=== PATIENT | female | born 1985 | race Two or more races ===

== ENCOUNTER 2017-02-15 21:11 | Emergency (ER) | payer BC, OTHER ==
[~2017-02-15] VITALS: Ht 160 cm; Wt 85.5 kg
[2017-02-15] MEDS ORDERED: FEXO1TAB29 PO (21:35)
[2017-02-15] MEDS ORDERED: DIPH25CA61 PO (21:35)
[2017-02-15] MEDS ORDERED: ALBUTEROL/IPRATROPIUM 2.5MG/0.5MG, 3 ML NPPB ONE (22:00)
[2017-02-15] MEDS ORDERED: ALBUTEROL/IPRATROPIUM 2.5MG/0.5MG, 3 ML ONE (22:03)
[2017-02-15] MEDS ORDERED: AZITHROMYCIN 500 MG TABLET PO ONE (22:30)
[2017-02-15] MEDS ORDERED: CEFTRIAXONE 1,000 MG IM ONE (22:30)
[2017-02-16 00:31] VITALS: BP 124/71
== END 2017-02-16 00:33 | disposition home or self-care (01) ==
LOC: ED 23:09
DX: J15.9 Unspecified bacterial pneumonia (principal); J98.01 Acute bronchospasm
CPT/HCPCS: 71020; 93005; 94640; 96372; 99284; J0696; J7512; J7620

== ENCOUNTER 2019-05-07 21:23 | Emergency (ER) | payer BC ==
[~2019-05-07] VITALS: Ht 160 cm; Wt 84.2 kg
[~2019-05-07 21:23] MED LIST: DIPH25CA61 PO; FEXO1TAB29 PO
[2019-05-07 21:25] VITALS: BP 142/100
--- NOTE | 2019-05-07 21:46 | NUR ---
Pt resting on gurney, c/o waking this am w/ dry throat, nonproductive cough, states "wheezes". VS wdl, respirations even and unlabored, speaks in full complete sentences, denies SOB on ambulation, does not take home medications. Xray at bedside.
[2019-05-07] MEDS ORDERED: ALBUTEROL/IPRATROPIUM 2.5MG/0.5MG, 3 ML NPPB ONE (22:00)
[2019-05-07] MEDS ORDERED: ALBUTEROL/IPRATROPIUM 2.5MG/0.5MG, 3 ML ONE (22:02)
--- NOTE | 2019-05-07 22:10 | NUR ---
Respiratory tx in progress.
--- NOTE | 2019-05-07 22:52 | NUR ---
PT REPORTS IMPROVEMENT IN SOB WITH MEDICATIONS/BREATHING TX. DC EDUCATION PROVIDED, PT DEMONSTRATES UNDERSTANDING. PT AMBULATED STEADILY TO DC WITH RN
== END 2019-05-07 22:55 | disposition home or self-care (01) ==
LOC: ED 22:53
DX: J45.21 Mild intermittent asthma with (acute) exacerbation (principal)
CPT/HCPCS: 71046; 93005; 94640; 99283; J7512